=== PATIENT | male | born 1990 | race Caucasian/White ===

== ENCOUNTER 2016-04-05 08:30 | Outpatient (RCR) | payer OTHER | END 2016-04-06 | disposition home or self-care (01) | LOC: PTY 08:30 | DX: M77.9 Enthesopathy, unspecified (principal); M67.00 Short Achilles tendon (acquired), unspecified ankle | CPT/HCPCS: 97110; 97140; 97161; G0283 ==

== ENCOUNTER 2016-04-19 09:10 | Outpatient (RCR) | payer OTHER | END 2016-05-07 | disposition home or self-care (01) | LOC: PTY 09:10 | DX: M67.00 Short Achilles tendon (acquired), unspecified ankle (principal); M77.9 Enthesopathy, unspecified | CPT/HCPCS: 97033; 97140; G0283 ==

== ENCOUNTER 2016-07-01 09:00 | Outpatient (RCR) | payer OTHER | END 2016-07-07 | disposition home or self-care (01) | LOC: PTY 09:00 | DX: M77.9 Enthesopathy, unspecified (principal); M67.01 Short Achilles tendon (acquired), right ankle | CPT/HCPCS: 97033; 97110; 97140; G0283 ==

== ENCOUNTER 2016-07-09 10:55 | Outpatient (RCR) | payer OTHER | END 2016-08-06 | disposition home or self-care (01) | LOC: PTY 10:55 | DX: M77.9 Enthesopathy, unspecified (principal); M67.00 Short Achilles tendon (acquired), unspecified ankle | CPT/HCPCS: 97033; 97110; 97140; G0283 ==